=== PATIENT | female | born 1970 ===

== ENCOUNTER → 2021-12-23 | Outpatient (CLI) | payer SELFPAY | END | disposition home or self-care (01) | LOC: LAB SHORT 10:49 | DX: R31.9 Hematuria, unspecified (principal) | CPT/HCPCS: 87077; 87086; 87186 ==

== ENCOUNTER → 2022-03-04 | Outpatient (CLI) | payer OTHER | END | disposition home or self-care (01) | LOC: LAB 14:12 → LAB SHORT 14:12 | DX: R31.9 Hematuria, unspecified (principal) | CPT/HCPCS: 87086 ==